=== PATIENT | male | born 1945 | race Caucasian/White ===

== ENCOUNTER → 2016-06-01 | Day surgery (SDC) | payer MEDICARE, OTHER ==
[~2016-06-01] MED LIST: ACETAMINOPHEN PO; ACTOS PO; ALBUTEROL SULF8.5 G1 INH; ALBUTEROL0.83 MG/ML IH; ALBUTEROL17 GM INH; AMLODIPINE BESYL5 MG PO; AMOXICILLIN PO; ASPIRIN ENTERI325 M1 PO; ASPIRIN81 M2 PO; ATENOLOL PO; AVANDIA PO; BAYER ASPIRIN325 M1 PO; BENZONATATE PO; CLARITIN10 M2 PO; CLARITIN10 M3 PO; COMBIVENT MININEB INH; COREG6.25 MG PO; COZAAR PO; FLAGYL PO; FLEXERIL10 MG PO; GABAPENTIN600 MG PO; GABAPENTIN800 MG PO; GLUCOTROL PO; GLUCOTROL XL PO; GLUCOTROL XL10 MG PO; HUMALOG KW100 UNIT/1 SUBQ; HUMALOG KW200 UNIT/1 SUBQ; HYDROCODONE/APAP; Humalog SUBQ; IMDUR-ER30 M1 PO; ISOSORBIDE DINI30 MG; JANUVIA PO; JANUVIA100 MG PO; KENALOG IN ORABA5 GM TOP; LANTUS100 U/ML SUBQ; LASIX PO; LASIX20 MG PO; LEVAQUIN PO; LIPITOR PO; LIPITOR40 MG PO; LISINOPRIL10 MG PO; LORATADINE PO; LOSARTAN POTASS50 MG PO; MAGNESIUM-VIT1 EACH PO; MAGNESIUM400 M1 PO; MAGNESIUM400 MG PO; MAGOX 400400 MG PO; MEDROL PO; MEDROL4 MG/DOSE- PO; METFORMIN HCL1000 M1 PO; METFORMIN HCL500 M1 PO; METFORMIN PO; METOPROLOL TAR25 MG PO; METOPROLOL TART25 MG PO; MIRALAX17 GM PO; MOTRIN600 MG PO; MUCINEX ER PO; NAPROSYN500 MG PO; NEURONTIN600 MG PO; NEURONTIN800 MG PO; NITROSTAT0.4 MG SL; NORCO 5/325 TAB1 TAB PO; NORVASC PO; OMEPRAZOLE40 M1 PO; OXYGEN; PIOGLITAZONE45 MG PO; PLAVIX PO; PREDNISONE PO; SIMVASTATIN40 MG PO; SPIRIVA18 MCG INH; STERAPRED5 MG/DOSE1 PO; SYMBICORT 160/4.6 GM INH; SYMBICORT INH; TESSALON200 MG PO; TRADJENTA5 MG PO; TRAMADOL HCL50 M1 PO; TUDORZA PRESS400 MCG IH; TUSSIN15 MG/5 M1 PO; TYL325 PO; TYLENOL #3 PO; VIBRAMYCIN100 M1 PO; VICODIN PO; ZETIA PO; ZITHROMAX1 G/PKT PO; [UNRECOGNIZED DRUG - MIXTURE] PO; [UNRECOGNIZED DRUG - OTHER] PO
--- NOTE | ~2016-06-01 | OR ---
Unit #: [id number] #: [id number] Patient: HOPE MASON [id number] [address] [address] [id number] O MR#: [id number] NAME: HOPE MASON ROOM: Date of Procedure: 06/01/2016 Admission Date: 06/01/2016 Surgeon: Hever Zeng M.D. : 1945 Attending Physician: Hever Zeng M.D. Referring Physician: Hever Zeng M.D. Primary Care Physician: John Tse M.D. OPERATIVE REPORT JOB NOTE: CC: PRIMARY CARE PHYSICIAN PROCEDURE PERFORMED Colonoscopy with snare polypectomy. INDICATIONS FOR PROCEDURE A 70-year-old gentleman with average risk for colorectal cancer. MEDICATIONS Monitored anesthesia. POSTOPERATIVE FINDINGS 1. Polyp 6 to 8 mm, ascending colon, snared, and sent for histopathology. 2. Prep was extremely poor limiting examination quality and leading to suboptimal exam. PLAN Repeat colonoscopy in 1 year. DESCRIPTION OF PROCEDURE The patient was explained of the procedure, risks, and benefits along with risks and benefits of anesthesia. He was brought to the endoscopy room. Propofol anesthesia was given. Rectal exam was done, which was normal. Colonoscope was lubricated, passed up the rectum, advanced under direct vision all the way to the cecum. Cecum was identified by ileocecal valve and appendiceal orifice. Polyp was seen in ascending colon, was snared, and sent for histopathology. Rest of the colon exam was normal, but prep was poor and leading to suboptimal exam. I retroflexed in the rectum and small hemorrhoids were seen. Scope was gently pulled out. He tolerated it well. Dictated by... Luis Antonio Mdaison/davon TD: 06/01/2016 23:53 JOB #: [id number] Unit #: [id number] #: [id number] Patient: HOPE MASON OPERATIVE REPORT Page 1 of 1 X Hever Zeng MD X PROCEDURE OPERATIVE NOTE
== END | disposition home or self-care (01) ==
LOC: COPS 08:03
PROVIDERS: Internal Medicine
PROC: 0DBK8ZZ Excision of Ascending Colon, Via Natural or Artificial Opening Endoscopic (ICD-10-PCS; principal; 2016-06-01 09:30)
DX: D12.2 Benign neoplasm of ascending colon (principal); E11.9 Type 2 diabetes mellitus without complications
CPT/HCPCS: 82947; 88305; J2250

== ENCOUNTER → 2016-06-13 | Outpatient (CLI) | payer MEDICARE, OTHER ==
--- NOTE | ~2016-06-13 | CR63 ---
[facility] A Service of [facility] & [facility] RADIOLOGY TEXT RESULTS PATIENT: HOPE MASON LOCATION: [facility] : [birth year] UNIT #: [id number] AGE: [address]: MAI GERMAIN APRN SEX: M ORDER DR: [id number] [address] [address] [id number] O MR#: [id number] Acc #: [id number] NAME: HOPE MASON : 1945 SEX: M STUDY DATE/TIME: 06/13/2016 14:21 UNIT: [facility] ROOM: STUDY DESCRIPTION: CR Chest 2 View Attending Physician: Mai Germain Aprn Referring Physician: Mai Germain Aprn Ordering Physician: Mai Germain Aprn Primary Care Physician: Jhon Tse M.D. MEDICAL IMAGING REPORT This report is preliminary unless electronic signature is present. EXAM PA and lateral chest 06/13/2016 INDICATIONS Cough and COPD for years. Smoking history. COMPARISON STUDIES Compared with 12/23/2015 FINDINGS The lungs are well expanded and clear. Heart size is stable. Degenerative changes thoracic spine. IMPRESSION No active disease. Dictated by... Efraín Arita M.D. THIS IS AN ELECTRONICALLY VERIFIED REPORT Efraín Arita M.D. at 06/15/2016 5:13 PM Hanny TD: 06/13/2016 17:22 JOB #: [id number] MEDICAL IMAGING REPORT Page 1 of 1
== END | disposition home or self-care (01) ==
LOC: SRAD 14:04
DX: R05 Cough (principal); J44.9 Chronic obstructive pulmonary disease, unspecified; Z87.891 Personal history of nicotine dependence
CPT/HCPCS: 71020

== ENCOUNTER → 2016-08-02 | Outpatient (CLI) | payer MEDICARE, OTHER ==
--- NOTE | ~2016-08-02 | CT7 ---
[facility] A Service of [facility] RADIOLOGY TEXT RESULTS PATIENT: HOPE MASON [facility] [birth year] UNIT #: [id number] AGE: [address]: John Tse MD SEX: M ORDER DR: [id number] [place] [id number] [facility]. [place], [place] [address] [id number] O MR#: [id number] Acc #: [id number] NAME: HOPE MASON : 1945 SEX: M STUDY DATE/TIME: 08/02/2016 11:20 UNIT: [facility] ROOM: STUDY DESCRIPTION: CT Abdomen Wo Cont Attending Physician: John Tse M.D. Referring Physician: John Tse M.D. Ordering Physician: John Tse M.D. Primary Care Physician: John Tse M.D. MEDICAL IMAGING REPORT This report is preliminary unless electronic signature is present EXAM CT of the abdomen without contrast. INDICATIONS Abdominal pain [address] of the abdomen was performed without contrast. Coronal and sagittal reformatted images were obtained. This CT exam was performed with one or more of the following radiation dose reduction techniques: automatic exposure control, adjustment of mA and/or kV according to patient size, and iterative reconstruction. COMPARISON Comparison with 09/08/2015. FINDINGS There is some minimal linear scar or atelectasis within the right lung base. The liver is unremarkable. The gallbladder is unremarkable. The spleen is unremarkable. The kidneys are unremarkable. There are stable bilateral adrenal nodules. These are probably adenomas. The pancreas is unremarkable. No dilated loops of bowel within the visualized portion of the abdomen. There are some scattered diverticula within the visualized portion of the colon. The bone windows demonstrate degenerative changes of the lower thoracic spine. IMPRESSION There are no CT findings to explain the patient's symptoms. Dictated by... Efraín Arita M.D. [facility] A Service [facility] RADIOLOGY TEXT RESULTS PATIENT: HOPE MASON [facility] 46 UNIT #: [id number] AGE: [address]: John Tse MD SEX: M ORDER DR: THIS IS AN ELECTRONICALLY VERIFIED REPORT Efraín Arita M.D. at 08/03/2016 8:15 AM Caroline TD: 08/02/2016 16:11 JOB #: [id number] MEDICAL IMAGING REPORT Page 1 of 1 COPY
== END | disposition home or self-care (01) ==
LOC: CCAT 10:24
DX: R14.0 Abdominal distension (gaseous) (principal)
CPT/HCPCS: 74150

== ENCOUNTER 2016-10-17 12:16 | Inpatient (IN) | payer MEDICARE, OTHER ==
[~2016-10-17] VITALS: Ht 185.4 cm; Wt 88.5 kg
--- NOTE | ~2016-10-17 | CT4 ---
[facility] A Service of [facility] / [facility] RADIOLOGY TEXT RESULTS PATIENT: HOPE MASON LOCATION: [place] [address] : [birth year] UNIT #: [id number] AGE: [address]: John Tse MD SEX: M ORDER DR: [id number] [facility] [address] [facility]. [place], [place] [address] [id number] I MR#: [id number] Acc #: [id number] NAME: HOPE MASON : 1945 SEX: M STUDY DATE/TIME: 10/19/2016 19:32 UNIT: [facility] ROOM: [facility] STUDY DESCRIPTION: CT Abd and Pelv Wo Cont Attending Physician: John Tse M.D. Ordering Physician: Partha Dukes M.D. Primary Care Physician: John Tse M.D. MEDICAL IMAGING REPORT This report is preliminary unless electronic signature is present EXAM CT abdomen and pelvis without contrast. HISTORY Abdomen pain today. Nausea and vomiting for [address] abdomen and pelvis was performed without contrast. This CT exam was performed with one or more of the following radiation dose reduction techniques: automatic exposure control, adjustment of mA and/or kV according to patient size, and iterative reconstruction. CT ABDOMEN 1.8 cm x 2 cm left adrenal nodule is stable in size compared to CT 05/02/2006, indicating a benign adenoma. The liver, gallbladder, spleen, pancreas, kidneys, and right adrenal gland are unremarkable. Normal caliber abdominal aorta. No urinary calculi. No hydronephrosis. No ascites. No bowel dilatation. CT PELVIS Normal appendix. Extensive sigmoid diverticulosis. No diverticulitis. No free fluid. No inflammatory stranding. Urinary bladder is normal. IMPRESSION 1. No acute findings in the abdomen or pelvis. 2. No urinary obstruction or bowel obstruction. 3. Normal appendix. 4. Stable incidental left adrenal adenoma. 5. Extensive sigmoid diverticulosis, but no evidence of diverticulitis. Dictated by... [facility] A Service of [facility] / [facility] RADIOLOGY TEXT RESULTS PATIENT: HOPE MASON LOCATION: [place] [address] : [birth year] UNIT #: [id number] AGE: [address]: John Tse MD SEX: M ORDER DR: Pavan Freeman M.D. THIS IS AN ELECTRONICALLY VERIFIED REPORT Pavan Freeman M.D. at 10/20/2016 11:37 PM DFL/bee TD: 10/20/2016 12:39 JOB #: [id number] MEDICAL IMAGING REPORT Page 1 of 1 COPY
--- NOTE | ~2016-10-17 | CO ---
Unit #: [id number] #: [id number] Patient: HOPE MASON [id number] [address] [place], [place] [address] [id number] I MR#: [id number] NAME: HOPE MASON ROOM: 476 Age: 70 Sex: M Admission Date: 10/17/2016 : 1945 Attending Physician: John Tse M.D. Primary Care Physician: John Tse M.D. Consultation Date: 10/19/2016 CONSULTATION REPORT PRIMARY CARE PHYSICIAN Dr. John Tse. REASON FOR CONSULTATION Abdominal pain. HISTORY OF PRESENTING ILLNESS Mr. Mason is a 70-year-old gentleman with multiple medical problems. He is awake and alert, but very confusing and poor historian. He was admitted directly for abdominal pain. He has very poor appetite. No nausea or vomiting. He lost about 15 pounds. He is constipated chronically since last year. He had significant amount of bleeding, however, not had blood in the stool in a while. He had an attempted colonoscopy in May, which was grossly suboptimal because of large amount of stool in there. PAST MEDICAL HISTORY Significant for, 1. Some bowel surgery apparently a few years ago. The patient cannot give any history regarding the surgery or the location. 2. Diabetes mellitus. 3. Obesity. 4. Coronary artery disease. 5. Hypertension and hyperlipidemia. SOCIAL HISTORY Denies alcohol. He is a smoker. Denies drug abuse. ALLERGIES None. FAMILY HISTORY No history of colon cancer in the family. REVIEW OF SYSTEMS Difficult to obtain, however, review of further systems other than as mentioned above has been negative. PHYSICAL EXAMINATION VITAL SIGNS: Stable, blood pressure 106/62, respirations 20, pulse of 71, temperature 99. HEENT: Oral mucosa moist. NECK: No JVD. No lymphadenopathy. CHEST: Clear to auscultation. Unit #: [id number] #: [id number] Patient: HOPE MASON CARDIOVASCULAR: Regular rate and rhythm. No murmurs. ABDOMEN: Significantly distended, gaseous. No tenderness. No shifting dullness. EXTREMITIES: Without clubbing, cyanosis, or edema. NEUROLOGIC: Intact. No focal sensory or motor deficits. Cranial nerves are intact. DIAGNOSTIC STUDIES LABORATORY RESULTS: White count at 7.1, hemoglobin 11. Chemistry showed BUN and creatinine elevated at 33 and 2, glucose of 162. IMAGING STUDIES: Previously, a CT scan of abdomen was unremarkable. No CT of abdomen or other imaging was done at this time. ASSESSMENT AND PLAN 1. The patient with significant abdominal distention, chronic abdominal pain, weight loss, history of blood in the stool previously suggest possibility of an obstructive colonic mass versus small-bowel obstruction, and colonic obstruction of benign on the malignant nature. At this time, I will keep him on clear liquids. We will get KUB once the major obstruction is ruled out. He will be bowel prepped extensively and panendoscopy will be carried out for further evaluation. 2. History of gastrointestinal bleeding. 3. History of weight loss. 4. Coronary artery disease. 5. Diabetes mellitus. Thank you, Dr. Modi, for this interesting consult. We will follow along. Dictated by... Luis Antonio Madison/davon TD: 10/19/2016 12:01 JOB #: [id number] CONSULTATION REPORT Page 1 of 1 X Hever Zeng MD X CONSULTATION REPORT
--- NOTE | ~2016-10-17 | OR ---
Unit #: [id number] #: [id number] Patient: HOPE MASON [id number] [address] [address] [id number] I MR#: [id number] NAME: HOPE MASON ROOM: 476 Date of Procedure: 10/21/2016 Admission Date: 10/17/2016 Surgeon: Hever Zeng M.D. : 1945 Attending Physician: John Tse M.D. Primary Care Physician: John Tse M.D. OPERATIVE REPORT PROCEDURE PERFORMED Colonoscopy with snare polypectomy. INDICATIONS FOR PROCEDURE The patient with generalized abdominal pain and anemia, undergoing colonoscopy for evaluation. MEDICATIONS Monitored anesthesia. POSTOPERATIVE FINDINGS 1. 3 polyps, 4 to 6 mm each, cecum, snared and sent for histopathology. 2. Diverticulosis, extensive mostly in the left side. 3. No colon cancer or large masses. 4. Internal hemorrhoids. PLAN Follow up on the pathology report. Repeat colonoscopy in 5 years. DESCRIPTION OF PROCEDURE The patient was explained of the procedure, risks, and benefits along with the risks and benefits of anesthesia. He was brought to the endoscopy room. Propofol anesthesia was given. Rectal exam was done, which was normal. Colonoscope was lubricated, passed up the rectum, advanced under direct vision all the way to the cecum. Cecum was identified by ileocecal valve and appendiceal orifice. Three polyps were seen in the cecum as described. They were snared and sent for histopathology. I retroflexed in the rectum, small hemorrhoids seen. Scope was gently pulled out. He tolerated it well. No major complications were seen. Dictated by... Luis Antonio Madison/davon TD: 10/21/2016 16:26 JOB #: [id number] Unit #: [id number] #: [id number] Patient: HOPE MASON OPERATIVE REPORT Page 1 of 1 X Hever Zeng MD PROCEDURE OPERATIVE NOTE
--- NOTE | ~2016-10-17 | HP ---
Unit #: [id number] #: [id number] Patient: HOPE MASON [id number] [address] [address] [id number] I MR#: [id number] NAME: HOPE MASON ROOM: 47 Age: 70 Sex: M Admission Date: 10/17/2016 : 1945 Attending Physician: John Tse M.D. Primary Care Physician: John Tse M.D. HISTORY AND PHYSICAL CHIEF COMPLAINT Abdominal pain. HISTORY OF PRESENTING ILLNESS Mr. Mason is a 70-year-old male who has multiple medical problems. He has been admitted multiple times with the same kind of complaint. He was admitted directly by Dr. Tse for abdominal pain and dehydration. Patient is a very poor historian, but his only complaint is abdominal pain which is gradually getting worse. Patient has a very low appetite according to him and nothing tastes good. He has lost a lot of weight. He does not complain of nausea or vomiting. His last bowel movement was the day before. According to him, he does not have constipation or diarrhea. He does not complain of fever, chills, or rigors, although patient did have a low-grade fever in the hospital. Does not complain of dizziness or syncopal episode. Does not complain of black-colored stools. Does not complain of chest pain or palpitations. PAST MEDICAL HISTORY 1. Diabetes mellitus. 2. Coronary artery disease. 3. COPD. 4. Hypertension. 5. Hyperlipidemia. 6. Peripheral vascular disease. PAST SURGICAL HISTORY 1. Stent placement in the right leg. 2. Hand surgery. 3. Hernia surgery. SOCIAL HISTORY Patient lives in the assisted living center. He has a history of smoking. According to him, he is smoking only occasionally now. No history of alcohol abuse or drug abuse. ALLERGIES No known drug allergies. FAMILY HISTORY Coronary artery disease. REVIEW OF SYSTEMS As per History of Presenting Illness. Unit #: [id number] #: [id number] Patient: HOPE MASON PHYSICAL EXAMINATION GENERAL: Patient is lying in bed in room 476. VITAL SIGNS: Blood pressure is 106/63, respiratory rate 20, pulse is 71, temperature 99.8, oxygen saturation is 93%. HEENT: Head is normocephalic. Eye movements are normal. NECK: Supple. CHEST: Fair air entry, decreased at the bases. CARDIOVASCULAR: Regular rhythm. ABDOMEN: Distended. Generalized mild tenderness is present. EXTREMITIES: Negative edema. CENTRAL NERVOUS SYSTEM: Patient is awake, alert, and oriented x3. DIAGNOSTIC STUDIES LABORATORY: WBC 7.1, hemoglobin 11.3, hematocrit 32.7, and platelet count of 173,000. CMP shows sodium 133, potassium 4.2, chloride 97, BUN 33, creatinine 2, glucose 162. IMAGING: Chest x-ray, PA and lateral, was done which shows no active disease. ASSESSMENT Patient is being admitted to medical/surgical unit with: 1. Acute on chronic kidney disease. 2. Dehydration. 3. Abdominal pain. 4. Abdominal distention. 5. Weight loss/appetite loss. 6. Low-grade fever, possible urinary tract infection. 7. Diabetes mellitus type 2. 8. History of coronary artery disease, status post percutaneous coronary intervention. 9. Hypotension with a history of hypertension. 10. Chronic obstructive pulmonary disease. PLAN Admit to med/surg unit. Dr. Zeng will be consulted. Home medications have been reviewed. Blood cultures x2 will be done. IV Rocephin is being started. IV fluids are being started. Please refer to progress note for further orders. Dictated by Luis Antonio Briones/ela TD: 10/18/2016 20:01 JOB #: [id number] HISTORY AND PHYSICAL Page 1 of 1 X Yamini Modi MD X HISTORY AND PHYSICAL
--- NOTE | ~2016-10-17 | CR4 ---
[facility] A Service of [facility] & [facility] RADIOLOGY TEXT RESULTS PATIENT: HOPE MASON LOCATION: [place] [address] : [birth year] UNIT #: [id number] AGE: [address]: John Tse MD SEX: M ORDER DR: [id number] [facility] [address] [place], [place] [address] [id number] I MR#: [id number] Acc #: [id number] NAME: HOPE MASON : 1945 SEX: M STUDY DATE/TIME: 10/19/2016 10:12 UNIT: [facility] ROOM: [facility] STUDY DESCRIPTION: CR Abdomen Flat Upright or Dec Attending Physician: John Tse M.D. Ordering Physician: Hever Zeng M.D. Primary Care Physician: John Tse M.D. MEDICAL IMAGING REPORT This report is preliminary unless electronic signature is present EXAM Abdomen flat and upright HISTORY Abdominal pain beginning 2 days ago. COMPARISON 08/11/2015 FINDINGS A flat and upright view of the abdomen were obtained. The bowel gas pattern is normal. There is very little bowel gas present. There is no free air. The bones are unremarkable. IMPRESSION Normal flat and upright abdomen series. Dictated by... Ricky Montelongo M.D. THIS IS AN ELECTRONICALLY VERIFIED REPORT Ricky Montelongo M.D. at 10/19/2016 5:04 PM JESSE/zaynab TD: 10/19/2016 15:51 JOB #: [id number] MEDICAL IMAGING REPORT Page 1 of 1 COPY
--- NOTE | ~2016-10-17 | EKG ---
PATIENT: HOPE MASON UNIT #: [id number] Ventricular Rate: 77 BPM Atrial Rate: 77 BPM P-R Interval: 198 ms QRS Duration: 94 ms Q-T Interval: 414 ms QTC Calculation(Bezet): 468 ms P [place]: 66 degrees Calculated R [place]: -17 degrees Calculated T [place]: 30 degrees Diagnosis Line: Sinus rhythm with frequent Premature ventricular Diagnosis Line: complexes in a pattern of bigeminy Diagnosis Line: Septal infarct , age undetermined Diagnosis Line: Abnormal ECG Diagnosis Line: When compared with ECG of 24-DEC-2015 08:07, Diagnosis Line: Septal infarct is now Present Diagnosis Line: Confirmed by DINH CESPEDES MD ([id number]) on Diagnosis Line: 10/21/2016 11:35:43 AM INTERPRETING MD: COY BIANCHI
--- NOTE | ~2016-10-17 | OR ---
Unit #: [id number] #: [id number] Patient: HOPE MASON [id number] [address] [address] [id number] I MR#: [id number] NAME: HOPE MASON ROOM: 476 Date of Procedure: 10/20/2016 Admission Date: 10/17/2016 Surgeon: Hever Zeng M.D. : 1945 Attending Physician: John Tse M.D. Primary Care Physician: John Tse M.D. OPERATIVE REPORT PROCEDURE PERFORMED Esophagogastroduodenoscopy with biopsies. INDICATIONS FOR PROCEDURE The patient with abdominal pain and anemia, undergoing evaluation with upper endoscopy. MEDICATIONS Monitored anesthesia. POSTOPERATIVE FINDINGS 1. Small segment of Knapp esophagus along with moderate size hiatal hernia. Biopsies taken. 2. Chronic appearing gastritis. Biopsies taken. 3. Mild duodenitis. Descending duodenum was normal. PLAN Continue PPI therapy. Further evaluation with colonoscopy. DESCRIPTION OF PROCEDURE The patient was explained of the procedure, risks, and benefits along with risks and benefits of anesthesia. He was brought to the endoscopy room. Propofol anesthesia was given. Bite block was placed. The scope was passed down the mouth into esophagus, stomach, duodenum, and distal duodenum. Findings as described. Biopsies taken. Gently, I pulled the scope out of the patient's mouth. He tolerated it well. Dictated by... Luis Antonio Madison/davon TD: 10/20/2016 12:46 JOB #: [id number] Unit #: [id number] #: [id number] Patient: HOPE MASON OPERATIVE REPORT Page 1 of 1 X Hever Zeng MD X PROCEDURE OPERATIVE NOTE
--- NOTE | ~2016-10-17 | DS ---
Unit #: [id number] #: [id number] Patient: HOPE MASON [id number] [address] [place], [place] [address] [id number] I MR#: [id number] NAME: HOPE MASON ROOM: 476 Age: 70 Sex: M Admission Date: 10/17/2016 : 1945 Discharge Date: 10/22/2016 Attending Physician: John Tse M.D. Primary Care Physician: John Tse M.D. DISCHARGE SUMMARY FINAL DIAGNOSES 1. Abdominal pain, which is improved. 2. Status post esophagogastroduodenoscopy and that showed a small segment of Knapp esophagus along with moderate sized hiatal hernia, chronic appearing gastritis, mild duodenitis. 3. Status post colonoscopy which showed 3 polyps, 4 to 6 mm each, cecum, snare and sent for histopathology, diverticulosis extensive mostly on the left side, no colon cancer or large masses seen, internal hemorrhoids seen. 4. Acute kidney injury, which is resolved. The patient's discharge BUN and creatinine are 17 and 1.2. 5. Possible urinary tract infection. Urine culture is negative. The patient received IV Rocephin during hospitalization. 6. Diabetes mellitus type 2, uncontrolled. Medications have been adjusted. 7. History of coronary artery disease, status post percutaneous coronary intervention. 8. Hypotension on admission, which is resolved. 9. Chronic obstructive pulmonary disease. DISCHARGE MEDICATIONS Imdur ER 30 mg daily, Protonix 40 mg daily, aspirin 81 mg daily, Lantus 30 units subcu q.a.m., losartan 50 mg daily, Lipitor 40 mg q.h.s., Tradjenta 5 mg daily, amlodipine 5 mg daily, Coreg 3.125 mg b.i.d., Symbicort 160/4.5 two puffs inhaler b.i.d., mag oxide 400 mg daily, metformin 1000 mg daily, Zetia 10 mg daily. DIAGNOSTIC STUDIES LABORATORY RESULTS: Lab workup upon discharge; CA-125, 6 which is in normal range. CA-99, 21 normal range. BMP shows sodium 136, potassium 4.0, chloride 103, BUN 17, creatinine 1.2. CBC shows WBC 7.2, hemoglobin 10.6, hematocrit 31.1, and platelet count of 249. Troponin less than 0.03. Serum iron 30, which is low. IMAGING STUDIES: Significant radiological studies done during hospitalization was CT scan of the abdomen and pelvis that shows no acute finding in the abdomen or pelvis, no urinary obstruction or bowel obstruction, normal appendix. Extensive sigmoid diverticulosis were noted. HOSPITAL COURSE Mr. Mason is a 70-year-old male, who was admitted on 10/18/2016 for abdominal pain. The patient was admitted to Med-Surg unit. Dr. Zeng was consulted. The patient had EGD and colonoscopy done, results are as above. The patient will continue to follow with Dr. Zeng as an outpatient Unit #: [id number] #: [id number] Patient: HOPE MASON to follow up on pathology results. The patient was hypotensive on admission. Please note, medications have been adjusted. The patient is stable at this time from that aspect. The patient had bradycardia during hospitalization. Beta-roscoe dose has been decreased. The patient was hypoglycemic on admission, which has been resolved. The patient's medication has been adjusted. PHYSICAL EXAMINATION VITAL SIGNS: On discharge, blood pressure is 151/80, respiratory rate 18, pulse is 69, temperature 97.7, oxygen saturations 99%. HEENT: Head is normocephalic. CHEST: Fair air entry. EXTREMITIES: Trace edema. DISCHARGE INSTRUCTIONS 1. Follow up primary care provider in [address] week[address] 2[address] up [address]. Zeng in 2 to 3 weeks. 3. CBC and BMP to be done in 1 week. Dictated by... Luis Antonio Briones/davon TD: 10/24/2016 16:00 JOB #: [id number] DISCHARGE SUMMARY Page 1 of 1 X Yamini Modi MD X DISCHARGE SUMMARY
--- NOTE | ~2016-10-17 | CR63 ---
[facility] A Service of [facility] & [facility] RADIOLOGY TEXT RESULTS PATIENT: HOPE MASON LOCATION: [place] [id number] : [birth year] UNIT #: [id number] AGE: [address]: John Tse MD SEX: M ORDER DR: [id number] [facility] [address] [place], [place] [address] [id number] MR#: [id number] Acc #: [id number] NAME: HOPE MASON : 1945 SEX: M STUDY DATE/TIME: 10/17/2016 16:20 UNIT: [facility] ROOM: [facility] STUDY DESCRIPTION: CR Chest 2 View Attending Physician: John Tse M.D. Ordering Physician: John Tse M.D. Primary Care Physician: John Tse M.D. MEDICAL IMAGING REPORT This report is preliminary unless electronic signature is present EXAM PA and lateral chest. HISTORY Shortness of air for 2 days. COMPARISON 06/13/2016. FINDINGS PA and lateral views of the chest were obtained. The heart size and vascularity are normal. Lungs are clear. Thoracic spine shows mild degenerative changes. IMPRESSION No active disease. Dictated by... Ricky Montelongo M.D. THIS IS AN ELECTRONICALLY VERIFIED REPORT Ricky Montelongo M.D. at 10/18/2016 1:30 PM FEL/gz TD: 10/18/2016 10:10 JOB #: [id number] MEDICAL IMAGING REPORT Page 1 of 1 COPY
--- NOTE | ~2016-10-17 | CO ---
Unit #: [id number] #: [id number] Patient: HOPE MASON [id number] [address] [place], [place] [address] [id number] MR#: [id number] NAME: HOPE MASON ROOM: 47 Age: 70 Sex: M Admission Date: 10/17/2016 : 1945 Attending Physician: John Tse M.D. Primary Care Physician: John Tse M.D. Consultation Date: 10/21/2016 CONSULTATION REPORT REASON FOR CONSULTATION Bradycardia. HISTORY OF PRESENT ILLNESS This is a 70-year-old male, known to Dr. Becerra with a prior history of dementia, COPD, hypertension, hyperlipidemia, peripheral vascular disease, diabetes mellitus, and coronary artery disease. He had a cardiac cath in 10/2013, which showed normal left main, ramus 30% to 40%, mid LAD in-stent 70% stenosis, and distal RCA with 20% to 30% stenosis. At that time, it was decided to treat him medically. He had a repeat cardiac cath in 03/2014, which showed improvement with a 50% LAD in-stent stenosis, and it was decided to continue with medical treatment. An echocardiogram done in 10/2013 showed LVEF 40% to 50% with mild tricuspid regurg and a trace mitral regurg. He was admitted to the hospital with dehydration and abdominal pain. 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 Around 4 p.m. yesterday, the patient had bradycardia with heart rate as low as 38. At that time, his blood pressure was 133/61. An EKG done showed sinus rhythm with bigeminy and a ventricular rate of 72. The patient was not on telemetry. The patient reports some dizziness and numbness in his legs yesterday with an episode of low heart rate and reports that he does have frequent episodes of dizziness at home as well as intermittent chest pains. Currently, he is chest pain free. The patient is a poor historian. PAST MEDICAL HISTORY 1. Dementia. 2. COPD. 3. Hypertension. 4. Hyperlipidemia. 5. Peripheral vascular disease. 6. Diabetes mellitus. 7. Lexiscan stress test in 12/2015 showed no ischemia and fixed defect. 8. Coronary artery disease, status post cath in 03/2014, which showed 60% in-stent stenosis of LAD. 9. Echocardiogram in 10/2013 showed LVEF 40% to 50% with trace mitral regurg and mild tricuspid regurg. PAST SURGICAL HISTORY 1. Peripheral stent in right leg. 2. Hand surgery. 3. Hernia surgery. Unit #: [id number] #: [id number] Patient: HOPE MASON 4. Multiple cardiac cath with coronary artery stents. SOCIAL HISTORY The patient lives in an assisted living center. He states he smokes occasionally. He denies alcohol or illicit drug use. FAMILY HISTORY The patient denies family history of premature coronary artery disease. ALLERGIES No known drug allergies. HOME MEDICATIONS Lipitor 40 mg p.o. daily, magnesium oxide 400 mg p.o. once a day, omeprazole 40 mg p.o. daily, amlodipine 5 mg p.o. daily, aspirin 81 mg p.o. daily, Coreg 6.25 mg p.o. b.i.d., Humalog 15 units subcu t.i.d., Imdur ER 30 mg p.o. daily, Lantus 40 mg subcu every morning, Claritin 10 mg p.o. daily, Losartan 50 mg p.o. b.i.d., metformin 1000 mg p.o. once a day, Symbicort 2 puffs inhalation b.i.d., Tradjenta 5 mg p.o. daily, Zetia 10 mg p.o. daily, Humalog KwikPen 1 unit subcu as needed for glucose elevation. REVIEW OF SYSTEMS The patient is a very poor historian. A 10-point review of systems was conducted and is otherwise negative, except for what was stated in the HPI. PHYSICAL EXAMINATION VITAL SIGNS: Temperature 97.8, heart rate 61, respiratory rate 18, and blood pressure 130/50. GENERAL: This is a 70-year-old male, resting in bed, in no acute distress. HEENT: Head is atraumatic and normocephalic. Pupils are equal and reactive to light. Mucous membranes are moist and intact. NECK: Supple. Trachea is midline. No JVD. LUNGS: Clear. Diminished in bases. Nonlabored respirations. CARDIOVASCULAR: S1 and S2. Regular rate and rhythm. No significant murmurs, rubs, or gallops. ABDOMEN: Soft. Tender to palpation. Positive bowel sounds. EXTREMITIES: Pulses are palpable. No pedal edema. No cyanosis. NEUROLOGIC: Alert and oriented x3. Moves all extremities equally and follows commands without difficulty. DIAGNOSTIC STUDIES LABORATORY RESULTS: Sodium 132, potassium 4, chloride 101, BUN 12, creatinine 1.2, and glucose 232. Hemoglobin 9.8, hematocrit 28.1, white blood cell count 5.5, and platelets 186. Blood cultures on 10/18/2016 have no growth to date. Urine culture on 10/18/2016 has no growth to date. IMAGING STUDIES: Chest x-ray showed no acute disease. CT of the abdomen and pelvis showed extensive sigmoid diverticulosis without diverticulitis. CARDIOVASCULAR STUDIES: EKG showed sinus rhythm with a ventricular rate of 72, in bigeminy. ASSESSMENT 1. Bradycardia, now in sinus rhythm. 2. Abdominal pain and weight loss. 3. Acute kidney injury on chronic kidney disease. Unit #: [id number] #: [id number] Patient: HOPE MASON 4. Hypertension. 5. Hyperlipidemia. 6. Diabetes mellitus. 7. Coronary artery disease, status post stent. 8. Cardiac cath in 03/2014 showed decreased left anterior descending artery in-stent stenosis. 9. Chronic obstructive pulmonary disease. 10. Status post esophagogastroduodenoscopy on 10/20/2016, which showed Knapp esophagus, mild hiatal hernia, chronic gastritis, and duodenitis. PLAN We will monitor the patient's heart rate. We will continue his beta-roscoe, but add parameters. Check cardiac enzymes and electrolytes. Echocardiogram. Thank you for asking us to see this patient. We appreciate the consult. Dictated by... Desiree Ward APRN for Donnell Becerra M.D. TRESA/davon TD: 10/22/2016 14:14 JOB #: [id number] CONSULTATION REPORT Page 1 of 1 X X CONSULTATION REPORT
[~2016-10-17 12:16] MED LIST changes: -ASPIRIN81 M2 PO; -HUMALOG KW100 UNIT/1 SUBQ; -MIRALAX17 GM PO; -TYL325 PO
[2016-10-17 16:02] LABS: HEMATOCRIT 32.7 % (38.0-50.0); HEMOGLOBIN 11.3 gm/dL (13.0-16.0); MEAN CELL VOLUME 89.4 FL (83-96); MEAN CORPUSCULAR HEMOGLOBIN 30.9 PG (28-34); MEAN CORPUSCULAR HGB CONC 34.5 g/dL (30-36); MEAN PLATELET VOLUME 8.8 FL (6.5-11.5); RED BLOOD COUNT 3.66 X10e (3.90-5.60); RED CELL DISTRIBUTION WIDTH 13.8 % (11.0-15.5); WHITE BLOOD COUNT 7.1 X10e3 (4.0-10.5)
[2016-10-17 16:27] LABS: ALBUMIN SERUM 3.8 g/dL (3.5-5.0); BILIRUBIN,TOTAL 2.4 mg/dL (0.2-2.0); BUN/CREATININE RATIO 16.5; CALCIUM SERUM 8.5 mg/dL (8.4-10.2); GLOM FILT RATE Estimated 33.1 mL/min (>60); POTASSIUM 4.2 mmol/L (3.5-5.1); PROTEIN TOTAL SERUM 7.3 g/dL (6.0-8.3)
[2016-10-17] MEDS ORDERED: AMLODIPINE BESYL5 MG PO (17:31)
[2016-10-17] MEDS ORDERED: ASPIRIN81 M2 PO (17:32)
[2016-10-17] MEDS ORDERED: HUMALOG KW100 UNIT/1 SUBQ (17:35)
[2016-10-18 18:13] LABS: AMYLASE 22 U/L (0-46); LIPASE 23 U/L (22-51)
[2016-10-18 23:00] LABS: URINE APPEARANCE CLEAR; URINE BILIRUBIN NEG (NEG); URINE BLOOD NEG (NEG); URINE COLOR YELLOW; URINE GLUCOSE NEG (NEG); URINE KETONE NEG (NEG); URINE LEUKOCYTE ESTERASE NEG (NEG); URINE NITRATE NEG (NEG); URINE PH 5.5 (5-8); URINE PROTEIN 1+ (NEG); URINE SPECIFIC GRAVITY 1.017 (1.003-1.035)
[2016-10-18 23:03] LABS: URINE BACTERIA AUWI NEG (NEGATIVE); URINE SQUAMOUS EPITHELIAL CELL NONE SEEN /[HPF]; UWBCS1 AUWI 0-2 (0-5)
[2016-10-18 23:06] LABS: CULTURE INDICATED? NO
[2016-10-19 19:31] LABS: BUN/CREATININE RATIO 15.38; CALCIUM SERUM 7.3 mg/dL (8.4-10.2); CREATININE SERUM 1.3 mg/dL (0.6-1.4); GLOM FILT RATE Estimated 55.7 mL/min (>60); POTASSIUM 4.1 mmol/L (3.5-5.1)
[2016-10-20 02:53] LABS: HEMATOCRIT 26.8 % (38.0-50.0); HEMOGLOBIN 9.4 gm/dL (13.0-16.0); MEAN CELL VOLUME 89.1 FL (83-96); MEAN CORPUSCULAR HEMOGLOBIN 31.2 PG (28-34); MEAN PLATELET VOLUME 8.8 FL (6.5-11.5); RED BLOOD COUNT 3.01 X10e (3.90-5.60); RED CELL DISTRIBUTION WIDTH 13.7 % (11.0-15.5); WHITE BLOOD COUNT 5.2 X10e3 (4.0-10.5)
[2016-10-20 03:14] LABS: BUN/CREATININE RATIO 13.33; CALCIUM SERUM 7.5 mg/dL (8.4-10.2); CREATININE SERUM 1.2 mg/dL (0.6-1.4); GLOM FILT RATE Estimated 61.3 mL/min (>60); PROTEIN TOTAL SERUM 6.5 g/dL (6.0-8.3)
[2016-10-21 03:43] LABS: BASOPHIL% 0.4 % (0-2.5); EOSINOPHIL# 0.3 X10e3 (0-0.7); EOSINOPHIL% 6.3 % (0.0-7.0); HEMATOCRIT 28.1 % (38.0-50.0); HEMOGLOBIN 9.8 gm/dL (13.0-16.0); LYMPHOCYTE# 0.8 X10e3 (1.0-3.5); LYMPHOCYTE% 14.9 % (17.0-45.0); MEAN CELL VOLUME 88.1 FL (83-96); MEAN CORPUSCULAR HEMOGLOBIN 30.9 PG (28-34); MEAN CORPUSCULAR HGB CONC 35.1 g/dL (30-36); MEAN PLATELET VOLUME 8.8 FL (6.5-11.5); MONOCYTE# 0.5 X10e3 (0-1.0); MONOCYTE% 9.7 % (3.0-12.0); NEUTROPHIL# 3.8 X10e3 (1.5-7.1); NEUTROPHIL% 68.7 % (40-75); PLATELET COUNT 186 X10e3 (140-420); RED BLOOD COUNT 3.19 X10e (3.90-5.60); RED CELL DISTRIBUTION WIDTH 13.6 % (11.0-15.5); WHITE BLOOD COUNT 5.5 X10e3 (4.0-10.5)
[2016-10-21 03:44] LABS: DIFF IND NO
[2016-10-21 04:19] LABS: BILIRUBIN,TOTAL 1.1 mg/dL (0.2-2.0); CALCIUM SERUM 7.7 mg/dL (8.4-10.2); CREATININE SERUM 1.2 mg/dL (0.6-1.4); GLOM FILT RATE Estimated 61.3 mL/min (>60)
[2016-10-21 12:36] LABS: %MB 2.4 % (0.0-4.0); MB 2.8 ng/ml
[2016-10-21 20:22] LABS: %MB 2.9 % (0.0-4.0); MB 2.8 ng/ml
[2016-10-22 04:26] LABS: HEMATOCRIT 31.1 % (38.0-50.0); HEMOGLOBIN 10.6 gm/dL (13.0-16.0); MEAN CELL VOLUME 88.5 FL (83-96); MEAN CORPUSCULAR HEMOGLOBIN 30.3 PG (28-34); MEAN CORPUSCULAR HGB CONC 34.2 g/dL (30-36); MEAN PLATELET VOLUME 8.9 FL (6.5-11.5); RED BLOOD COUNT 3.51 X10e (3.90-5.60); RED CELL DISTRIBUTION WIDTH 13.7 % (11.0-15.5); WHITE BLOOD COUNT 7.2 X10e3 (4.0-10.5)
[2016-10-22 04:54] LABS: BUN/CREATININE RATIO 14.16; CALCIUM SERUM 8.3 mg/dL (8.4-10.2); CREATININE SERUM 1.2 mg/dL (0.6-1.4); GLOM FILT RATE Estimated 61.3 mL/min (>60)
[2016-10-22 05:37] LABS: CA 19-9 21 U/mL (<34); CA125 6 U/mL (<35)
[2016-10-22] MEDS ORDERED: TYL325 PO (14:50)
[2016-10-22] MEDS ORDERED: MIRALAX17 GM PO (15:01)
[2016-10-22] MEDS ORDERED: LIPITOR40 MG PO (15:14)
== END 2016-10-22 16:00 | disposition home or self-care (01) | DRG 683 ==
LOC: C4C 14:32 → UNDOADMIN 14:32 → C4C 15:22
PROVIDERS: Hospitalist; Internal Medicine; Internal Medicine Cardiovascular Disease; Physician Assistant Medical
PROC: 0DB68ZX Excision of Stomach, Via Natural or Artificial Opening Endoscopic, Diagnostic (ICD-10-PCS; principal; 2016-10-20 12:00)
PROC: B246YZZ Ultrasonography of Right and Left Heart using Other Contrast (ICD-10-PCS; 2016-10-21)
PROC: 0DBH8ZX Excision of Cecum, Via Natural or Artificial Opening Endoscopic, Diagnostic (ICD-10-PCS; 2016-10-21 15:37)
DX: N17.9 Acute kidney failure, unspecified (principal); N39.0 Urinary tract infection, site not specified; E11.22 Type 2 diabetes mellitus with diabetic chronic kidney disease; F03.90 Unspecified dementia, unspecified severity, without behavioral disturbance, psychotic disturbance, mood disturbance, and anxiety; T82.855A Stenosis of coronary artery stent, initial encounter; J44.9 Chronic obstructive pulmonary disease, unspecified; I10 Essential (primary) hypertension; R00.1 Bradycardia, unspecified; K22.70 Barrett's esophagus without dysplasia; E86.0 Dehydration; R10.9 Unspecified abdominal pain; K44.9 Diaphragmatic hernia without obstruction or gangrene; K29.50 Unspecified chronic gastritis without bleeding; K29.80 Duodenitis without bleeding; K57.30 Diverticulosis of large intestine without perforation or abscess without bleeding; K64.8 Other hemorrhoids; D12.0 Benign neoplasm of cecum; I12.9 Hypertensive chronic kidney disease with stage 1 through stage 4 chronic kidney disease, or unspecified chronic kidney disease; E11.65 Type 2 diabetes mellitus with hyperglycemia; N18.9 Chronic kidney disease, unspecified; I25.10 Atherosclerotic heart disease of native coronary artery without angina pectoris; Z95.5 Presence of coronary angioplasty implant and graft; Z95.820 Peripheral vascular angioplasty status with implants and grafts; F17.200 Nicotine dependence, unspecified, uncomplicated; Z79.82 Long term (current) use of aspirin; Z79.4 Long term (current) use of insulin; K59.00 Constipation, unspecified
CPT/HCPCS: 71020; 74020; 74176; 80048; 80053; 81003; 82150; 82378; 82533; 82550; 82553; 82728; 82947; 83540; 83690; 83735; 84466; 84484; 85025; 85027; 86301; 86304; 87040; 87086; 88305; 88312; 93005; 93306; J0696; J1644; J1815; J3475